=== PATIENT | female | born 1975 | race Caucasian/White ===

== ENCOUNTER 2018-12-15 13:12 | Emergency (ER) | payer SELFPAY ==
[2018-12-15 13:57] LABS: Bilirubin Negative (Negative); Blood, Urine Negative (Negative); Clarity Hazy (Clear); Glucose, Urine (Dipstick) Negative (Negative); Leukocyte Negative (Negative); Nitrite Negative (Negative); Protein, Urine (Dipstick) Negative (Neg-Trace); Urobilinogen 0.2 mg/dL (Less than 2)
[2018-12-15 13:58] LABS: Pregnancy Test - Urine (BHCG) Negative (Negative); Pregu Control Background? CLEAR/WHITE (CLR/WHITE); Pregu Control Bar Appear? YES (CONTROL BAR)
[2018-12-15 14:13] LABS: #Basophils 0.1 thou/uL (0.0-0.2); #Eosinphils 0.1 thou/uL (0.0-0.7); #Lymphocytes 1.7 thou/uL (1.20-3.40); #Monocytes 0.6 thou/uL (0.11-0.59); #Neutrophils 5.7 thou/uL (1.40-6.50); %Basophils 1.2 % (0.0-1.0); %Eosinophils 0.9 % (0.0-10.0); %Lymphocytes 21.1 % (21.0-51.0); %Monocytes 7.1 % (0.0-10.0); %Neutrophils 69.8 % (42.0-75.0); Hemoglobin 12.5 g/dL (12.0-16.0); Mean Corpuscular HGB CONC 30.1 g/dL (32.0-36.0); Mean Corpuscular Hemoglobin 28.3 pg (27.0-31.0); Mean Platelet Volume 8.2 fL (7.4-10.4); Platelet Count 342 thou/uL (130-400); RBC Distribution Width 12.3 % (11.5-14.5); Red Blood Cell (RBC) Count 4.42 mill/uL (4.20-5.40); White Blood Cell (WBC) Count 8.1 thou/uL (4.8-10.8)
[2018-12-15 14:31] LABS: ALT (SGPT) 13 U/L (8-55); AST (SGOT) 7 U/L (5-34); Albumin 3.9 g/dL (3.5-5.0); Alkaline Phosphatase 83 U/L (40-110); Anion Gap 15 mmol/L (10-20); BUN (Urea Nitrogen) 12 mg/dL (7.0-18.7); Bilirubin, Total 0.4 mg/dL (0.2-1.2); Calc. Creatinine Clearance 0 mL/min (70-130); Calcium 8.6 mg/dL (7.8-10.44); Carbon Dioxide 25 mmol/L (22-29); Chloride 105 mmol/L (98-107); Estimated GFR-MDRD 82; Glucose 115 mg/dL (70-105); Lipase 11 U/L (8-78); Potassium 4.5 mmol/L (3.5-5.1); Protein, Total 6.9 g/dL (6.0-8.3); Sodium 140 mmol/L (136-145)
--- NOTE | 2018-12-15 15:13 | CT ---
EXAM: Abdomen and pelvic CT scan without contrast: HISTORY: Left flank pain COMPARISON: None FINDINGS: The visualized lung bases are clear. Liver: Unremarkable. Gallbladder:Unremarkable. Pancreas:Unremarkable Spleen:Unremarkable. Adrenal glands:Unremarkable. Kidneys:No renal calculus or acute obstruction. No solid or cystic renal mass. No evidence for bowel obstruction. No CT evidence for acute appendicitis. The urinary bladder is unremarkable. Reproductive system:Unremarkable No abscess, adenopathy, or abnormal fluid collection within the abdomen or pelvis. IMPRESSION: No significant acute process in the abdomen or pelvis. No renal calculus or obstruction.
== END 2018-12-15 15:45 | disposition home or self-care (01) ==
LOC: MADERS 13:12
DX: R10.9 Unspecified abdominal pain (principal)
CPT/HCPCS: 36415; 74176; 80053; 81003; 81025; 82550; 83690; 84484; 85025; 93005